=== PATIENT | female | born 1980 | race African-American/Black ===

== ENCOUNTER 2021-03-03 23:49 | Emergency (ER) | payer MEDICAID ==
[~2021-03-03] VITALS: Ht 167.6 cm; Wt 95.0 kg
[2021-03-03 23:53] VITALS: BP 170/90
[2021-03-04] MEDS ORDERED: ACETAMINOPHEN 500MG TABLET PO ONE (00:15)
== END 2021-03-04 00:19 | disposition home or self-care (01) ==
LOC: ER 23:49
DX: U07.1 COVID-19 (principal); R50.9 Fever, unspecified
CPT/HCPCS: 82962; 99283